=== PATIENT | female | born 1980 | race Caucasian/White ===

== ENCOUNTER 2016-10-18 14:17 | Emergency (ER) | payer BC ==
--- NOTE | 2016-10-18 15:46 | EDM.PDOCBH ---
ED HPI GENERAL MEDICAL PROBLEM - General Chief Complaint: Behavioral/Psych Stated Complaint: ANXIETY Time Seen by Provider: 10/18/16 15:35 Source of Information: Reports: Patient History Limitations: Reports: No Limitations - History of Present Illness INITIAL COMMENTS - FREE TEXT/NARRATIVE: HISTORY AND PHYSICAL: History of present illness: [pt comes to the ER with complaints of anxiety which has worsened over the past week. States that she has been thinking over some mistakes of her past including an episode of infidelity many years ago. She's been ruminating about this and struggling with being able to forgive herself. She started over with her fianc and her ex and both verbalized that they forgive her but she continues to experience lots of crying, feelings of worthlessness and increased anxiety. She feels on the edge of panic all day which has been going on for the past week. She was unable to work today because of feeling panicky. She describes a sensation of her mind and heart racing, and the sensation that her heart was going to jump out of her chest. She has had diminished appetite for the past several days and low energy. She feels improved in the evening after relaxing and talking over her concerns with her fianc when she wakes up in the morning she immediately begins to feel anxious and panicky. She denies any thoughts of suicide or harming herself or others. She reports a history of depression and anxiety for which she took Zoloft but this many years ago. She was unable to get into her PCPs office today and so presents to the emergency room for evaluation.] Review of systems: As per history of present illness and below otherwise all systems reviewed and negative. Past medical history: As per history of present illness and as reviewed below otherwise noncontributory. Surgical history: As per history of present illness and as reviewed below otherwise noncontributory. Social history: No reported history of drug or alcohol abuse. Family history: As per history of present illness and as reviewed below otherwise noncontributory. Physical exam: HEENT: Atraumatic, normocephalic. Lungs: Clear to auscultation, breath sounds equal bilaterally. Heart: S1S2, regular rate and rhythm. Abdomen: Soft, nondistended, nontender. Genitourinary: Deferred. Rectal: Deferred. Extremities: Atraumatic, normal in appearance. Ambulance without difficulty. Neurovascular unremarkable. Neuro: Awake, alert, oriented. Motor and sensory unremarkable throughout. Exam nonfocal. Psych: is tearful. Conversation is clear and thoughts are congruent. Denies suicidal thoughts. Impression: [Anxiety] Plan: [Rx written for alprazolam 0.5 mg #20 take 1/2 -1 by mouth every 6-8 hours as needed for anxiety 0 refills. She is given an appointment at [facility] for early next week. We discussed the need for counseling to overcome some of her negative thoughts and in achieving self forgiveness. Discussed that alprazolam are for short-term anxiety and that this medication may be habit forming. discussed that this medication needs to last her until her follow-up with PCP. She is to return to the ER if further concerns develop or continue. She is in agreement with today's plan. Definitive disposition and diagnosis as appropriate pending reevaluation and review of above. - Related Data Allergies Allergy/AdvReac Type Severity Reaction Status Date / Time sulfamethoxazole Allergy Muscle Verified 10/18/16 15:09 [From Bactrim] Aches trimethoprim [From Bactrim] Allergy Muscle Verified 10/18/16 15:09 Aches Home Meds: Home Meds . [No Known Home Meds] 05/21/15 [History] Past Medical History - Past Health History Medical/Surgical History: Denies Medical/Surgical History Psychiatric History: Reports: Anxiety Social & Family History - Family History Family Medical History: Noncontributory - Tobacco Use Smoking Status *Q: Never Smoker Years of Tobacco use: 13 Packs/Tins Daily: 1 - Alcohol Use Days Per Week of Alcohol Use: 4 Number of Drinks Per Day: 2 Total Drinks Per Week: 8 - Recreational Drug Use Recreational Drug Use: Yes Drug Use in Last 12 Months: Yes Recreational Drug Type: Reports: Marijuana/Hashish Recreational Drug Use Frequency: Daily Recreational Drug Last Use: T-1 ED ROS GENERAL - Review of Systems Review Of Systems: ROS reveals no pertinent complaints other than HPI. ED EXAM, BEHAVIORAL HEALTH - Physical Exam Exam: See Below COURSE, BEHAVIORAL HEALTH COMP - Course Vital Signs: Last Vital Signs Temp 97.6 F 10/18/16 14:17 Pulse 85 10/18/16 16:17 Resp 16 10/18/16 16:17 BP 119/72 10/18/16 16:17 Pulse Ox 96 10/18/16 16:17 Departure - Departure Time of Disposition: 15:56 Disposition: Home, Self-Care 01 Condition: Good Clinical Impression: Anxiety - Discharge Information Instructions: Panic Attacks, [id number] Referrals: Jasvir Aguilar MD [Primary Care Provider] - Forms: ED Department Discharge Additional Instructions: The following information is given to patients seen in the emergency department who are being discharged to home. This information is to outline your options for follow-up care. We provide all patients seen in our emergency department with a follow-up referral. The need for follow-up, as well as the timing and circumstances, are variable depending upon the specifics of your emergency department visit. If you don't have a primary care physician on staff, we will provide you with a referral. We always advise you to contact your personal physician following an emergency department visit to inform them of the circumstance of the visit and for follow-up with them and/or the need for any referrals to a consulting specialist. The emergency department will also refer you to a specialist when appropriate. This referral assures that you have the opportunity for follow-up care with a specialist. All of these measure are taken in an effort to provide you with optimal care, which includes your follow-up. Under all circumstances we always encourage you to contact your private physician who remains a resource for coordinating your care. When calling for follow-up care, please make the office aware that this follow-up is from your recent emergency room visit. If for any reason you are refused follow-up, please contact the [facility] emergency department at and asked to speak to the emergency department charge nurse. [address] [address] Follow-up with Irma Salter as scheduled on October 23. Take medications as prescribed. Return to ER as needed as discussed.
== END 2016-10-18 16:17 | disposition home or self-care (01) ==
LOC: MW.ED 14:17
CPT/HCPCS: 99282; 99283

== ENCOUNTER 2023-03-30 14:00 | Emergency (ER) | payer BC ==
[2023-03-30] MEDS ORDERED: Ibuprofen 600 MG Tab PO ONE (14:57)
[2023-03-30] MEDS ORDERED: Acetaminophen/HYDROcodone 325-5 MG Tab PO ONE ×2 (16:13→18:22)
[2023-03-30 18:34] VITALS: BP 121/89; PULSE 85
== END 2023-03-30 18:44 | disposition home or self-care (01) ==
LOC: MW.ED 14:00
DX: M25.522 Pain in left elbow (principal); Z88.2 Allergy status to sulfonamides
CPT/HCPCS: 73000; 73060; 73080; 99283; A9270